=== PATIENT | female | born 1995 | race Two or more races ===

== ENCOUNTER 2022-05-20 17:31 | Emergency (ER) | payer BC ==
[~2022-05-20] VITALS: Ht 160 cm; Wt 63.5 kg
[2022-05-20] MEDS ORDERED: LEXAPRO5 MG PO (17:43)
== END 2022-05-20 22:51 | disposition home or self-care (01) ==
LOC: ER 17:31
DX: B34.9 Viral infection, unspecified (principal); R21 Rash and other nonspecific skin eruption; D72.819 Decreased white blood cell count, unspecified; D72.821 Monocytosis (symptomatic)